=== PATIENT | female | born 1990 | race Caucasian/White ===

== ENCOUNTER 2024-05-13 02:23 | Emergency (ER) | payer BC, OTHER ==
--- NOTE | 2024-05-13 03:03 | EDPHYS ---
Physician Documentation [facility] Name: Eileen Jama Age: 34 yrs Sex: Female : 1990 Arrival Date: 05/13/2024 Time: 02:23 Bed IW8 Private MD: ED Physician Peter Hylton HPI: 05/13 02:33 This 34 yrs old Female presents to ER via Unassigned with complaints of Blood sp4 in urine, Abdominal Pain, Back Pain, Flank Pain. 05/14 01:13 34-year-old female presents with complaint of abdominal pain and back pain and flank sp4 pain.. - Family history:: not pertinent. MDM: 05/13 02:34 Medical Screening Exam initiated sp4 05/13 02:34 Order name: IV Saline Lock sp4 05/13 02:34 Order name: Labs collected and sent sp4 Administered Medications: No medications were administered Disposition: 05/14 01:14 Chart complete. sp4 Disposition Summary: 05/13/24 03:02 Eloped Notes: Disposition: after being seen by provider kl Reason: unknown kl Signatures: Dispatcher [employer] Sona Ramírez RN RN kl Potepalov, Sergey, MD MD sp4
--- NOTE | 2024-05-13 03:03 | ER ---
Nurse's Notes [facility] Name: Eileen Jama Age: 34 yrs Sex: Female : 1990 Arrival Date: 05/13/2024 Time: 02:23 Bed 8 [facility] MD: Diagnosis: Presentation: 05/13 02:49 Method Of Arrival: Ambulatory kl 02:57 Note [id number] pt not in lobby. kl - Family history:: not pertinent. ED Course: : Patient arrived in ED. gm2 02:33 Peter Hylton MD is Attending Physician. sp4 02:55 Patient's name was called from ER [employer]. No response. kl 03:02 Patient's name was called from ER [employer]. No response. kl Administered Medications: No medications were administered Outcome: 03:02 Patient left the ED. kl Signatures: Sona Hinojosa RN RN Peter Trujillo MD MD sp4 Nataly Ro gm2
== END 2024-05-13 03:02 | disposition left against medical advice (07) ==
LOC: ER 02:23
DX: R10.9 Unspecified abdominal pain (principal); M54.9 Dorsalgia, unspecified